=== PATIENT | male | born 1970 | race Asian ===

== ENCOUNTER 2024-03-24 03:53 | Day surgery (SDC) | payer OTHER ==
[2024-03-19 14:50] VITALS: BMI 27.7
[2024-03-24 08:45] VITALS: RESP 20
[2024-03-24] MEDS ORDERED: PROPOFOL 20 ML ONE (10:49)
[2024-03-24] MEDS ORDERED: DEXAMETHASONE SOD PHOSPHATE 4 MG/1 ML VIAL ONE (10:49)
[2024-03-24] MEDS ORDERED: MIDAZOLAM HCL 2 MG/2 ML SINGLE DOSE VIAL ONE (10:49)
[2024-03-24] MEDS ORDERED: ONDANSETRON 4 MG/2 ML VIAL ONE (10:49)
[2024-03-24] MEDS ORDERED: FENTANYL CITRATE/PF 50 MCG/ML VIAL ONE ×2 (10:49→11:30)
[2024-03-24 14:42] VITALS: BP 129/80; PULSE 64; TEMP 97.5
== END 2024-03-24 14:43 | disposition home or self-care (01) ==
LOC: JASU-SURG 03:53
PROVIDERS: ATTEND Urology
PROC: 0TF4XZZ Fragmentation in Left Kidney Pelvis, External Approach (ICD-10-PCS; principal; 2024-03-24 11:00)
DX: N20.0 Calculus of kidney (principal)